=== PATIENT | male | born 1995 | race Caucasian/White ===

== ENCOUNTER 2017-12-27 16:31 | Emergency (ER) | payer BC ==
[~2017-12-27] VITALS: Ht 190.5 cm; Wt 127.3 kg
[2017-12-27 16:37] VITALS: BP 105/67; TEMP 97.8
[2017-12-27] MEDS ORDERED: NORCO 325 MG-51 TAB PO (17:19)
[2017-12-27] MEDS ORDERED: CRUTCHES MC (17:23)
[2017-12-27 18:09] VITALS: PULSE 79
== END 2017-12-27 18:10 | disposition home or self-care (01) ==
LOC: COL.ER 16:31
DX: S82.301A Unspecified fracture of lower end of right tibia, initial encounter for closed fracture (principal); S82.831A Other fracture of upper and lower end of right fibula, initial encounter for closed fracture; W13.8XXA Fall from, out of or through other building or structure, initial encounter; Y92.828 Other wilderness area as the place of occurrence of the external cause
CPT/HCPCS: Q4041

== ENCOUNTER 2019-01-25 19:06 | Emergency (ER) | payer BC ==
[~2019-01-25] VITALS: Ht 190.5 cm; Wt 125.0 kg
[~2019-01-25 19:06] MED LIST: CRUTCHES MC; NORCO 325 MG-51 TAB PO
[2019-01-25 19:26] VITALS: TEMP 98.4
[2019-01-25 19:57] LABS: BASO # 0.1 (0.0-0.2); BASO % 1.3 % (0.0-2.0); EOS # 0.6 (0.0-0.7); EOS % 5.6 % (0-4.0); GRAN # 5.9 (1.4-6.5); GRAN % 52.4 % (42.2-75.2); HEMATOCRIT 43.4 % (42.0-52.0); HEMOGLOBIN 14.4 g/dl (13.5-18.0); LYMPH # 3.8 (1.2-3.4); LYMPH % 33.9 % (20.0-51.0); MEAN CELL VOLUME 86 fl (80.0-100.0); MEAN CORPUSCULAR HEMOGLOBIN 29 pg (27.0-31.0); MEAN CORPUSCULAR HGB CONC 33 g/dl (33.0-37.0); MEAN PLATELET VOLUME 10.2 fl (7.4-10.4); MONO # 0.7 (0.1-0.6); MONO % 6.4 % (1.7-9.3); PLATELET COUNT 283 K/mm3 (130-400); RED BLOOD COUNT 5.06 M/mm3 (4.20-5.60)
[2019-01-25 20:35] LABS: ALANINE AMINOTRANSFERASE 10 U/L (21-72); ALBUMIN 4.6 gm/dL (3.5-5.0); ALKALINE PHOSPHATASE 65 U/L (50-136); ANION GAP 13 mmol/L (7-16); AST,SGOT 20 U/L (15-37); BILIRUBIN,TOTAL 0.4 mg/dL (0.0-1.0); BLOOD UREA NITROGEN 18 mg/dL (9-20); CALCIUM 9.8 mg/dL (8.4-10.2); CARBON DIOXIDE 25 mmol/L (22-30); CHLORIDE 104 mmol/L (98-107); CREATININE, serum 0.87 (0.66-1.25); GLUCOSE 92 mg/dL (74-106); SODIUM 141 mmol/L (137-145)
[2019-01-25 20:46] LABS: TROPONIN-I < 0.012 ng/mL (0.000-0.035)
[2019-01-25] MEDS ORDERED: ZITHROMAX Z PA250 MG PO (21:00)
[2019-01-25] MEDS ORDERED: PROAIR HFA0.09 MG/AC IH (21:00)
[2019-01-25 21:10] VITALS: BP 122/65; PULSE 86
== END 2019-01-25 21:11 | disposition home or self-care (01) ==
LOC: COL.ER 19:06
PROVIDERS: Physician Assistant
DX: K21.9 Gastro-esophageal reflux disease without esophagitis (principal); J18.9 Pneumonia, unspecified organism; J45.909 Unspecified asthma, uncomplicated; D72.1 Eosinophilia

== ENCOUNTER → 2020-02-14 | Outpatient (CLI) | payer OTHER ==
[~2020-02-14] MED LIST changes: +PROAIR HFA0.09 MG/AC IH; +ZITHROMAX Z PA250 MG PO
== END ==
LOC: ZCOL.LAB 20:56
DX: B36.9 Superficial mycosis, unspecified (principal)

== ENCOUNTER 2020-07-25 09:31 | Emergency (ER) | payer OTHER ==
[~2020-07-25] VITALS: Ht 190.5 cm; Wt 136.4 kg
[2020-07-25 09:34] VITALS: BP 138/94; PULSE 86; TEMP 97.9
[2020-07-25] MEDS ORDERED: CIPRODEX OT (10:25)
== END 2020-07-25 10:46 | disposition home or self-care (01) ==
LOC: COL.ER 09:31
DX: H60.501 Unspecified acute noninfective otitis externa, right ear (principal); Z88.1 Allergy status to other antibiotic agents; Z79.51 Long term (current) use of inhaled steroids

== ENCOUNTER 2020-09-10 19:48 | Emergency (ER) | payer OTHER ==
[~2020-09-10] VITALS: Ht 190.5 cm; Wt 136.4 kg
[~2020-09-10 19:48] MED LIST changes: +CIPRODEX OT
[2020-09-10 21:14] LABS: BASO % 0.4 % (0.0-2.0); EOS # 0.1 (0.0-0.7); EOS % 1.1 % (0-4.0); GRAN # 6.7 (1.4-6.5); GRAN % 64.3 % (42.2-75.2); HEMATOCRIT 41.8 % (42.0-52.0); HEMOGLOBIN 13.4 g/dl (13.5-18.0); LYMPH # 2.9 (1.2-3.4); LYMPH % 27.6 % (20.0-51.0); MEAN CELL VOLUME 84 fl (80.0-100.0); MEAN CORPUSCULAR HEMOGLOBIN 27 pg (27.0-31.0); MEAN CORPUSCULAR HGB CONC 32 g/dl (33.0-37.0); MONO # 0.6 (0.1-0.6); PLATELET COUNT 283 K/mm3 (130-400); RED BLOOD COUNT 4.97 M/mm3 (4.20-5.60); REDCELL DISTRIBUTION WIDTH-CV 12.4 % (11.5-14.5)
[2020-09-10 21:24] LABS: CALCIUM 9.5 mg/dL (8.4-10.2); CREATININE, serum 1.03 (0.66-1.25); POTASSIUM 4.3 mmol/L (3.4-5.0)
[2020-09-10 21:50] VITALS: BP 138/74; PULSE 78; TEMP 98
== END 2020-09-10 21:51 | disposition home or self-care (01) ==
LOC: COL.ER 19:48
PROVIDERS: Physician Assistant
DX: M79.662 Pain in left lower leg (principal); U07.1 COVID-19; Z88.1 Allergy status to other antibiotic agents